=== PATIENT | female | born 1965 | race Caucasian/White ===

== ENCOUNTER 2016-10-25 13:15 | Emergency (ER) | payer MEDICAID, OTHER ==
[2016-10-25] MEDS ORDERED: LIDOCAINE 1% MDV 20 ML ONE (15:01)
[2016-10-25] MEDS ORDERED: CEFTRIAXONE 1 GM VIAL ONE (15:01)
== END 2016-10-25 15:38 | disposition home or self-care (01) ==
LOC: FASTR 13:15
DX: N30.00 Acute cystitis without hematuria (principal)
CPT/HCPCS: 81001; 87077; 87088; 87186; 96372